=== PATIENT | male | born 1990 | race African-American/Black ===

== ENCOUNTER 2017-11-19 14:28 | Emergency (ER) | payer OTHER, SELFPAY ==
[~2017-11-19] VITALS: Ht 188 cm; Wt 89.6 kg
[2017-11-19 14:29] VITALS: BP 136/85
[2017-11-19] MEDS ORDERED: ACETAMINOPHEN 650 MG/20.3 ML UDC ONE ×2 (15:24→16:01)
[2017-11-19] MEDS ORDERED: ACETAMINOPHEN 325 MG TABLET PO ONE (16:00)
== END 2017-11-19 16:09 | disposition home or self-care (01) ==
LOC: ED 15:31
DX: J02.9 Acute pharyngitis, unspecified (principal)
CPT/HCPCS: 99283

== ENCOUNTER 2018-12-20 19:09 | Emergency (ER) | payer OTHER ==
[~2018-12-20] VITALS: Ht 188 cm; Wt 99.8 kg
[2018-12-20 19:20] VITALS: BP 143/88
[2018-12-20] MEDS ORDERED: CEFTRIAXONE 250 MG IM ONE (20:00)
[2018-12-20] MEDS ORDERED: AZITHROMYCIN 250 MG TABLET PO ONE (20:00)
--- NOTE | 2018-12-20 20:02 | NUR ---
URINE COLLECTED AND SENT TO LAB.
[2018-12-20 20:13] LABS: CULTURE INDICATED? YES; MICROSCOPIC INDICATED
[2018-12-20] MEDS ORDERED: AZITHROMYCIN 500 MG TABLET ONE (20:21)
[2018-12-20] MEDS ORDERED: CEFTRIAXONE 250 MG ONE (20:21)
[2018-12-20] MEDS ORDERED: LIDOCAINE-MPF 1%, 5ML ONE (20:22)
--- NOTE | 2018-12-20 20:49 | NUR ---
Patient/Caregiver given discharge instructions and they have confirmed that they understand the instructions. Patient ambulatory with steady gait.
== END 2018-12-20 20:50 | disposition home or self-care (01) ==
LOC: ED 20:44
DX: A74.9 Chlamydial infection, unspecified (principal); A54.9 Gonococcal infection, unspecified
CPT/HCPCS: 81001; 87086; 87491; 87591; 96372; 99283; J0696

== ENCOUNTER 2020-11-06 21:47 | Emergency (ER) | payer SELFPAY ==
[~2020-11-06] VITALS: Ht 188 cm; Wt 102.3 kg
[2020-11-06 22:12] VITALS: BP 151/89
[2020-11-06] MEDS ORDERED: CEFTRIAXONE 250 MG ONE (22:18)
[2020-11-06] MEDS ORDERED: AZITHROMYCIN 500 MG TABLET ONE (22:18)
[2020-11-06] MEDS ORDERED: LIDOCAINE-MPF 1%, 5ML ONE (22:18)
[2020-11-06] MEDS ORDERED: CEFTRIAXONE 250 MG IM ONE (22:30)
[2020-11-06] MEDS ORDERED: AZITHROMYCIN 500 MG TABLET PO ONE (22:30)
== END 2020-11-06 22:43 | disposition home or self-care (01) ==
LOC: ED 22:17
DX: R36.9 Urethral discharge, unspecified (principal); R39.15 Urgency of urination; Z20.2 Contact with and (suspected) exposure to infections with a predominantly sexual mode of transmission
CPT/HCPCS: 87491; 87591; 96372; 99283; J0696